=== PATIENT | female | born 1980 | race American Indian/Alaskan Native ===

== ENCOUNTER 2016-11-18 11:17 | Emergency (ER) | payer OTHER ==
[2016-11-18 11:59] LABS: Basophils % (Auto) 0.6 % (0.0-1.8); Eosinophils % (Auto) 1.9 % (0.0-4.3); Hematocrit 35.5 % (30.3-42.9); Hemoglobin 11.8 gm/dl (10.1-14.3); Mean Corpuscular HGB Conc 33 % (30-34); Mean Corpuscular Hemoglobin 28 pg (28-32); Mean Corpuscular Volume 85 fl (79-97); Platelet Count 291 K/mm3 (140-440); Red Blood Count 4.19 M/mm3 (3.65-5.03); Red Cell Distribution Width 13.6 % (13.2-15.2); White Blood Count 11.7 K/mm3 (4.5-11.0)
[2016-11-18 12:13] LABS: Anion Gap 17 mmol/L; BUN/Creatinine Ratio 8.57; Blood Urea Nitrogen 6 mg/dL (7-17); Calcium 9.1 mg/dL (8.4-10.2); Carbon Dioxide 25 mmol/L (22-30); Chloride 102.8 mmol/L (98-107); Glucose 94 mg/dL (65-100); Potassium 3.4 mmol/L (3.6-5.0); Sodium 141 mmol/L (137-145)
[2016-11-18 14:43] LABS: Bacteria,Urine 1+ /HPF (Negative); Bilirubin,Urine NEG (Negative); Blood,Urine NEG (Negative); Ketones,Urine 80 mg/dL (Negative); Leukocyte Esterase,Urine LG (Negative); Mucus,Urine 3+ /HPF; Nitrite,Urine NEG (Negative); Urobilinogen,Urine < 2.0 mg/dL (<2.0)
[2016-11-18] MEDS ORDERED: ZOFRAN IV ONE (17:01)
[2016-11-18] MEDS ORDERED: MORPHINE IV ONE (17:01)
--- NOTE | 2016-11-18 17:01 | Emergency Department Report ---
ED Chest Pain HPI - General Chief Complaint: Chest Pain Stated Complaint: CHEST PAIN Time Seen by Provider: 11/18/16 16:52 Source: patient Mode of arrival: Ambulatory Limitations: No Limitations - History of Present Illness Initial Comments: 36 years old female history of gastric sleeves done last week by Dr. Chavarria presented today with chest pain, diffuse, sharp associated with shortness of breath. Denied any fever no cough. MD Complaint: chest pain -: days(s) Onset: during rest Pain Location: other (diffuse) Pain Radiation: none Severity scale (0 -10): 8 Quality: sharp re: nausea, vomting - Related Data Home Medications Medication Instructions Recorded Confirmed Last Taken Amitriptyline [Elavil] 1 tab PO TID 02/14/13 02/21/13 02/18/13 Topiramate [Topamax] 100 mg PO BID 02/14/13 02/21/13 02/18/13 Zolpidem [Ambien] 1 tab PO QDAY 02/14/13 02/21/13 02/17/13 oxyCODONE /ACETAMINOPHEN [Percocet 1 tab PO BID 02/14/13 02/21/13 02/17/13 5/325 mg] Previous Rx's Medication Instructions Recorded Last Taken Type Acetaminophen/Codeine [Tylenol #3] 1 tab PO Q6H PRN #20 tab 04/16/16 Unknown Rx HYDROcodone/ACETAMINOPHEN [Lortab 15 ml PO TID PRN #150 ml 11/18/16 Unknown Rx 10 mg-300 mg per 15 ML ORAL LIQ] Ondansetron [Zofran Oral Liq] 4 mg PO TID PRN #45 ml 11/18/16 Unknown Rx Allergies Allergy/AdvReac Type Severity Reaction Status Date / Time SHRIMP Allergy Intermediate Hives Uncoded 02/21/13 09:32 Heart Score - HEART Score History: Slightly suspicious EKG: Non-specific Age: < 45 Risk factors: 1-2 risk factors Troponin: < normal limit HEART Score: 2 - Critical Actions Critical Actions: 0-3 pts:0.9-1.7%risk of adverse cardiac event.Candidate for discharge ED Review of Systems ROS: Stated complaint: CHEST PAIN Other details as noted in HPI Comment: All other systems reviewed and negative Constitutional: denies: chills, fever Respiratory: shortness of breath. denies: cough Cardiovascular: chest pain Gastrointestinal: denies: abdominal pain, vomiting, diarrhea Genitourinary: denies: dysuria, frequency Neurological: denies: headache ED Past Medical Hx - Past Medical History Hx Hypertension: No Hx Congestive Heart Failure: No Hx Diabetes: No Hx Headaches / Migraines: Yes (MIGRAINES) Hx Seizures: No Hx Asthma: No Hx COPD: No - Surgical History Additional Surgical History: right knee, partial hysterectomy - Social History Smoking Status: Never Smoker - Medications Home Medications: Home Medications Medication Instructions Recorded Confirmed Last Taken Type Amitriptyline [Elavil] 1 tab PO TID 02/14/13 02/21/13 02/18/13 History Topiramate [Topamax] 100 mg PO BID 02/14/13 02/21/13 02/18/13 History Zolpidem [Ambien] 1 tab PO QDAY 02/14/13 02/21/13 02/17/13 History oxyCODONE /ACETAMINOPHEN [Percocet 1 tab PO BID 02/14/13 02/21/13 02/17/13 History 5/325 mg] Acetaminophen/Codeine [Tylenol #3] 1 tab PO Q6H PRN #20 tab 04/16/16 Unknown Rx HYDROcodone/ACETAMINOPHEN [Lortab 15 ml PO TID PRN #150 ml 11/18/16 Unknown Rx 10 mg-300 mg per 15 ML ORAL LIQ] Ondansetron [Zofran Oral Liq] 4 mg PO TID PRN #45 ml 11/18/16 Unknown Rx ED Physical Exam - General Limitations: No Limitations General appearance: alert, in no apparent distress - Head Head exam: Present: normocephalic - Eye Eye exam: Present: normal appearance - ENT ENT exam: Present: normal exam, normal orophraynx - Neck Neck exam: Present: normal inspection, full ROM. Absent: tenderness - Respiratory Respiratory exam: Present: rhonchi, decreased breath sounds. Absent: respiratory distress, wheezes, rales - Cardiovascular Cardiovascular Exam: Present: regular rate, normal rhythm, normal heart sounds - GI/Abdominal GI/Abdominal exam: Present: soft. Absent: distended, tenderness, guarding, rebound, mass, bruit, pulsatile mass - Extremities Exam Extremities exam: Present: normal inspection, full ROM, normal capillary refill. Absent: tenderness - Back Exam Back exam: Present: normal inspection. Absent: CVA tenderness (R), CVA tenderness (L) - Neurological Exam Neurological exam: Present: alert, oriented X3, CN II-XII intact - Skin Skin exam: Present: warm, normal color ED Course Vital Signs 11/18/16 11/18/16 11/18/16 11:33 16:40 16:41 Temperature 97.9 F Pulse Rate 79 86 87 Respiratory 16 18 12 Rate Blood Pressure 118/77 Blood Pressure 118/77 [Left] O2 Sat by Pulse 99 98 Oximetry 11/18/16 11/18/16 11/18/16 16:43 16:45 16:47 Temperature Pulse Rate 91 H 93 H 90 Respiratory 12 13 12 Rate Blood Pressure Blood Pressure [Left] O2 Sat by Pulse Oximetry 11/18/16 11/18/16 11/18/16 16:49 16:51 16:53 Temperature Pulse Rate 83 91 H 94 H Respiratory 15 15 17 Rate Blood Pressure Blood Pressure [Left] O2 Sat by Pulse Oximetry 11/18/16 11/18/16 11/18/16 16:55 16:57 16:59 Temperature Pulse Rate 88 95 H 91 H Respiratory 12 14 14 Rate Blood Pressure Blood Pressure [Left] O2 Sat by Pulse Oximetry 11/18/16 11/18/16 11/18/16 17:01 17:03 17:05 Temperature Pulse Rate 81 91 H 93 H Respiratory 16 30 H 15 Rate Blood Pressure Blood Pressure [Left] O2 Sat by Pulse Oximetry 11/18/16 11/18/16 11/18/16 17:06 17:57 17:59 Temperature Pulse Rate 84 84 93 H Respiratory 10 L 24 15 Rate Blood Pressure Blood Pressure [Left] O2 Sat by Pulse 100 100 Oximetry 11/18/16 11/18/16 11/18/16 18:00 18:01 18:03 Temperature Pulse Rate 92 H 94 H Respiratory 18 13 15 Rate Blood Pressure Blood Pressure [Left] O2 Sat by Pulse 99 100 Oximetry 11/18/16 11/18/16 11/18/16 18:05 18:07 18:09 Temperature Pulse Rate 87 93 H 81 Respiratory 10 L 13 10 L Rate Blood Pressure Blood Pressure [Left] O2 Sat by Pulse 100 100 100 Oximetry 11/18/16 11/18/16 11/18/16 18:11 18:13 18:15 Temperature Pulse Rate 94 H 80 81 Respiratory 19 14 11 L Rate Blood Pressure Blood Pressure [Left] O2 Sat by Pulse 99 99 99 Oximetry 11/18/16 11/18/16 11/18/16 18:17 18:19 18:21 Temperature Pulse Rate 82 84 77 Respiratory 10 L 18 17 Rate Blood Pressure Blood Pressure [Left] O2 Sat by Pulse 99 99 99 Oximetry 11/18/16 11/18/16 11/18/16 18:23 18:25 18:27 Temperature Pulse Rate 81 80 74 Respiratory 17 14 15 Rate Blood Pressure Blood Pressure [Left] O2 Sat by Pulse 99 100 98 Oximetry 11/18/16 18:29 Temperature Pulse Rate 83 Respiratory 11 L Rate Blood Pressure Blood Pressure [Left] O2 Sat by Pulse 100 Oximetry - Reevaluation(s) Reevaluation #1: 11/18/16 18:45 Patient stated that she is feeling much better no chest pain or shortness of breath. Informed about her blood work significant came back with no acute abnormality. Patient had a CTA chest which came back negative for PE, pneumonia or other abnormalities. ED Medical Decision Making - Lab Data Result diagrams: 11/18/16 11:42 11/18/16 11:42 Critical care attestation.: If time is entered above; I have spent that time in minutes in the direct care of this critically ill patient, excluding procedure time. ED Disposition Clinical Impression: Chest pain, Shortness of breath Disposition: DC-01 TO HOME OR SELFCARE Is pt being admited?: No Condition: Stable Instructions: Chest Pain (ED) Prescriptions: HYDROcodone/ACETAMINOPHEN [Lortab 10 mg-300 mg per 15 ML ORAL LIQ] 15 ml PO TID PRN #150 ml PRN Reason: Pain Ondansetron [Zofran Oral Liq] 4 mg PO TID PRN #45 ml PRN Reason: Vomiting Referrals: MACHELLE HAYES MD [Primary Care Provider] - 3-5 Days
--- NOTE | 2016-11-18 18:20 | Cat Scan Report ---
FINAL REPORT PROCEDURE: CT angiography of the chest TECHNIQUE: Computerized axial tomographic angiography of the chest and pulmonary arteries was performed during the IV injection of iodinated nonionic contrast. The image data was postprocessed using maximum intensity projection (MIP) and 2-dimensional multiplanar reformatted (MPR) techniques. The examination is specifically tailored to the evaluation of the pulmonary arteries per clinical request. HISTORY: Short of breath 786.09, chest pain 786.50, CHEST PAIN, SOB S/P SURGERY LAST WEEK COMPARISON: No prior studies are available for comparison. FINDINGS: Pulmonary outflow tract, right and left main pulmonary arteries and their proximal branches: Clear, no filling defects seen to suggest pulmonary embolus. Pericardium: No evidence of pericardial effusion. Thoracic aorta: No evidence of aneurysmal dilatation or dissection. Coronary arteries: Are partially calcified indicating atherosclerotic disease. Mediastinum and hilar regions: Nonspecific subcentimeter lymph nodes are visualized. No pathologically enlarged lymph nodes or masses are identified. Lung Andrade: Clear Upper abdomen: Postsurgical changes are partially visualized involving the stomach. Other: No acute bony abnormalities are identified. IMPRESSION: Postsurgical changes partially visualized in the upper abdomen. No acute abnormalities are seen. No evidence of pulmonary embolus..
[2016-11-18 20:08] VITALS: BP 146/78
== END 2016-11-18 19:10 | disposition home or self-care (01) ==
LOC: ED 11:17
DX: R07.9 Chest pain, unspecified (principal); R06.02 Shortness of breath; G43.909 Migraine, unspecified, not intractable, without status migrainosus; Z91.013 Allergy to seafood
CPT/HCPCS: 36415; 71275; 80048; 81001; 81025; 84484; 85025; 93005; 93010; 96374; 96375; 99284; J2270; J2405; Q9967